=== PATIENT | male | born 1945 | race Native Hawaiian/Other Pacific Islander ===

== ENCOUNTER 2017-07-18 14:22 | Inpatient (IN) | payer OTHER ==
[~2017-07-18 14:22] MED LIST: ACET7.5T70 PO; AMITRIPTYLIN50 MG PO; CELEXA20 MG PO; ETODOLAC ER600 MG PO; FORTAMET500 MG PO; NORCO 10/325***1 TAB PO; PENI500T14 PO; ZOLP10TA2 PO
== END 2017-08-14 10:40 | disposition still patient (30) ==
LOC: PAVC 14:22
PROVIDERS: ADMIT Internal Medicine

== ENCOUNTER 2017-07-19 05:04 | Outpatient (CLI) | payer OTHER ==
[2017-07-19 06:22] LABS: PLATELET COUNT 303 K/uL (142-355)
[2017-07-19 06:35] LABS: POTASSIUM 4.2 mmol/L (3.6-5.2); SODIUM 132 mmol/L (136-145)
== END 2017-07-19 19:20 | disposition home or self-care (01) ==
LOC: LAB 05:04
PROVIDERS: Internal Medicine
DX: D64.89 Other specified anemias (principal); I10 Essential (primary) hypertension; E03.8 Other specified hypothyroidism; E11.9 Type 2 diabetes mellitus without complications
CPT/HCPCS: 80053; 83036; 84443; 85027; 87081

== ENCOUNTER 2017-07-22 04:40 | Outpatient (CLI) | payer OTHER | END 2017-07-22 20:02 | disposition home or self-care (01) | LOC: LAB 04:40 | DX: E11.29 Type 2 diabetes mellitus with other diabetic kidney complication (principal); R79.89 Other specified abnormal findings of blood chemistry | CPT/HCPCS: 82607; 82728; 84436; 84479 ==

== ENCOUNTER 2017-07-25 09:46 | Outpatient (CLI) | payer OTHER | END 2017-07-25 21:05 | disposition home or self-care (01) | LOC: RAD 09:46 | DX: M25.552 Pain in left hip (principal) ==

== ENCOUNTER 2017-08-01 15:17 | Outpatient (CLI) | payer OTHER | END 2017-08-01 19:41 | disposition home or self-care (01) | LOC: LAB 15:17 | DX: R36.9 Urethral discharge, unspecified (principal) | CPT/HCPCS: 87070; 87077; 87186; 87205 ==

== ENCOUNTER 2017-08-14 11:05 | Inpatient (IN) | payer OTHER | END 2017-09-14 08:00 | disposition still patient (30) | LOC: PAVC 11:05 | PROVIDERS: ADMIT Internal Medicine ==

== ENCOUNTER 2017-09-14 09:00 | Inpatient (IN) | payer OTHER | END 2017-10-14 10:32 | disposition still patient (30) | LOC: PAVC 09:00 | PROVIDERS: ADMIT Internal Medicine ==

== ENCOUNTER 2017-10-14 11:02 | Inpatient (IN) | payer OTHER | END 2017-11-14 10:26 | disposition still patient (30) | LOC: PAVC 11:02 | PROVIDERS: ADMIT Internal Medicine ==

== ENCOUNTER 2017-10-15 04:29 | Outpatient (CLI) | payer OTHER | END 2017-10-15 21:35 | disposition home or self-care (01) | LOC: LABW 04:29 | DX: E03.8 Other specified hypothyroidism (principal); R73.09 Other abnormal glucose | CPT/HCPCS: 36415; 83036 ==

== ENCOUNTER 2017-11-14 11:08 | Inpatient (IN) | payer OTHER | END 2017-12-14 15:07 | disposition still patient (30) | LOC: PAVC 11:08 | PROVIDERS: ADMIT Internal Medicine ==

== ENCOUNTER 2017-12-14 15:41 | Inpatient (IN) | payer OTHER | END 2018-01-14 08:00 | disposition still patient (30) | LOC: PAVC 15:41 | PROVIDERS: ADMIT Internal Medicine ==

== ENCOUNTER 2018-01-14 09:00 | Inpatient (IN) | payer OTHER | END 2018-02-14 11:13 | disposition still patient (30) | LOC: PAVC 09:00 | PROVIDERS: ADMIT Internal Medicine ==

== ENCOUNTER 2018-02-02 10:18 | Outpatient (CLI) | payer OTHER ==
[2018-02-02 10:36] LABS: PLATELET COUNT 303 K/uL (142-355)
[2018-02-02 11:13] LABS: POTASSIUM 4.9 mmol/L (3.6-5.2)
== END 2018-02-02 21:40 | disposition home or self-care (01) ==
LOC: LAB 10:18
PROVIDERS: Internal Medicine
DX: E53.8 Deficiency of other specified B group vitamins (principal); E11.9 Type 2 diabetes mellitus without complications; D64.9 Anemia, unspecified; I10 Essential (primary) hypertension; F41.8 Other specified anxiety disorders; Z79.899 Other long term (current) drug therapy
CPT/HCPCS: 80053; 82607; 82728; 83036; 83540; 84436; 84443; 84480; 85027

== ENCOUNTER 2018-02-14 11:49 | Inpatient (IN) | payer OTHER | END 2018-03-16 15:06 | disposition still patient (30) | LOC: PAVC 11:49 | PROVIDERS: ADMIT Internal Medicine ==

== ENCOUNTER 2018-03-16 15:59 | Inpatient (IN) | payer OTHER ==
[2018-03-25] MEDS ORDERED: CYAN10009 IM (13:17)
[2018-03-25] MEDS ORDERED: METF100038 PO (13:19)
[2018-03-25] MEDS ORDERED: MOBIC7.5 M1 PO (13:19)
[2018-03-25] MEDS ORDERED: CLOP75TA2 PO (13:20)
[2018-03-25] MEDS ORDERED: OMEP20CA PO (13:20)
[2018-03-25] MEDS ORDERED: FINGERSTIX (13:21)
[2018-03-25] MEDS ORDERED: PERCOCET1 TA1 PO (13:23)
[2018-03-25] MEDS ORDERED: BANOPHEN25 M1 PO (13:24)
[2018-03-25] MEDS ORDERED: TRIA0.1C5 TOP (13:28)
[2018-03-25] MEDS ORDERED: HYDROCORTISONE1 % PR (13:31)
[2018-03-25] MEDS ORDERED: NYST100010 EX (13:31)
[2018-03-25] MEDS ORDERED: PROMETHAZINE HY25 MG PO (13:33)
[2018-03-25] MEDS ORDERED: TYLENOL325 MG PO (13:34)
[2018-04-01] MEDS ORDERED: ESCI10TA PO (12:26)
[2018-04-01] MEDS ORDERED: RISP0.25 PO ×2 (12:26)
== END 2018-04-16 10:41 | disposition still patient (30) ==
LOC: PAVC 15:59
PROVIDERS: ADMIT Internal Medicine

== ENCOUNTER 2018-04-16 11:43 | Inpatient (IN) | payer OTHER ==
[~2018-04-16 11:43] MED LIST changes: +BANOPHEN25 M1 PO; +CLOP75TA2 PO; +CYAN10009 IM; +ESCI10TA PO; +FINGERSTIX; +HYDROCORTISONE1 % PR; +METF100038 PO; +MOBIC7.5 M1 PO; +NYST100010 EX; +OMEP20CA PO; +PERCOCET1 TA1 PO; +PROMETHAZINE HY25 MG PO; +RISP0.25 PO; +TRIA0.1C5 TOP; +TYLENOL325 MG PO
== END 2018-05-16 07:23 | disposition still patient (30) ==
LOC: PAVC 11:43
PROVIDERS: ADMIT Internal Medicine

== ENCOUNTER 2018-04-23 06:57 | Outpatient (CLI) | payer OTHER | END 2018-04-23 20:09 | disposition home or self-care (01) | LOC: LAB 06:57 | DX: R73.03 Prediabetes (principal) | CPT/HCPCS: 36415; 83036 ==

== ENCOUNTER 2018-04-30 05:32 | Outpatient (CLI) | payer OTHER | END 2018-04-30 19:26 | disposition home or self-care (01) | LOC: LAB 05:32 | DX: E55.9 Vitamin D deficiency, unspecified (principal) | CPT/HCPCS: 36415; 82306 ==

== ENCOUNTER 2018-05-16 08:00 | Inpatient (IN) | payer OTHER | END 2018-06-16 09:39 | disposition still patient (30) | LOC: PAVC 08:00 | PROVIDERS: ADMIT Internal Medicine ==

== ENCOUNTER 2018-06-16 10:07 | Inpatient (IN) | payer OTHER | END 2018-07-17 09:40 | disposition still patient (30) | LOC: PAVC 10:07 | PROVIDERS: ADMIT Internal Medicine ==

== ENCOUNTER 2018-07-06 15:44 | Outpatient (CLI) | payer OTHER | END 2018-07-06 22:14 | disposition home or self-care (01) | LOC: RAD 15:44 | DX: R06.2 Wheezing (principal) ==

== ENCOUNTER 2018-07-17 10:32 | Inpatient (IN) | payer OTHER | END 2018-08-14 13:52 | disposition still patient (30) | LOC: PAVC 10:32 | PROVIDERS: ADMIT Internal Medicine ==

== ENCOUNTER 2018-07-20 07:58 | Outpatient (CLI) | payer OTHER ==
[2018-07-20 08:50] LABS: PLATELET COUNT 255 K/uL (142-355)
[2018-07-20 09:33] LABS: POTASSIUM 4.8 mmol/L (3.6-5.2)
== END 2018-07-20 20:46 | disposition home or self-care (01) ==
LOC: LAB 07:58
PROVIDERS: Internal Medicine
DX: D50.9 Iron deficiency anemia, unspecified (principal); E61.1 Iron deficiency; D51.0 Vitamin B12 deficiency anemia due to intrinsic factor deficiency; R94.6 Abnormal results of thyroid function studies; R68.89 Other general symptoms and signs
CPT/HCPCS: 36415; 80053; 82607; 82728; 83036; 83540; 84443; 85027

== ENCOUNTER 2018-08-14 14:32 | Inpatient (IN) | payer OTHER | END 2018-09-14 12:33 | disposition still patient (30) | LOC: PAVC 14:32 | PROVIDERS: ADMIT Internal Medicine ==

== ENCOUNTER 2018-09-02 13:21 | Outpatient (CLI) | payer OTHER | END 2018-09-02 23:12 | disposition home or self-care (01) | LOC: LAB 13:21 | DX: N36.8 Other specified disorders of urethra (principal) | CPT/HCPCS: 81000 ==

== ENCOUNTER 2018-09-03 10:19 | Outpatient (CLI) | payer OTHER | END 2018-09-03 19:12 | disposition home or self-care (01) | LOC: LAB 10:19 | DX: Z12.5 Encounter for screening for malignant neoplasm of prostate (principal) | CPT/HCPCS: 84153 ==

== ENCOUNTER 2018-09-14 13:00 | Inpatient (IN) | payer OTHER | END 2018-10-14 13:45 | disposition still patient (30) | LOC: PAVC 13:00 | PROVIDERS: ADMIT Internal Medicine ==

== ENCOUNTER 2018-10-14 14:21 | Inpatient (IN) | payer OTHER | END 2018-11-14 09:41 | disposition still patient (30) | LOC: PAVC 14:21 | PROVIDERS: ADMIT Internal Medicine | DX: Z51.89 Encounter for other specified aftercare (principal) ==

== ENCOUNTER 2018-10-16 05:55 | Outpatient (CLI) | payer OTHER | END 2018-10-16 19:56 | disposition home or self-care (01) | LOC: LAB 05:55 | DX: R73.09 Other abnormal glucose (principal) | CPT/HCPCS: 83036 ==

== ENCOUNTER 2018-11-14 10:15 | Inpatient (IN) | payer OTHER | END 2018-12-14 12:21 | disposition still patient (30) | LOC: PAVC 10:15 | PROVIDERS: ADMIT Internal Medicine ==

== ENCOUNTER 2018-12-14 12:44 | Inpatient (IN) | payer OTHER | END 2019-01-14 12:33 | disposition still patient (30) | LOC: PAVC 12:44 | PROVIDERS: ADMIT Internal Medicine ==

== ENCOUNTER 2019-01-14 14:26 | Inpatient (IN) | payer OTHER | END 2019-02-14 17:18 | disposition still patient (30) | LOC: PAVC 14:26 | PROVIDERS: ADMIT Internal Medicine ==

== ENCOUNTER 2019-01-19 11:55 | Outpatient (CLI) | payer OTHER ==
[2019-01-19 13:00] LABS: PLATELET COUNT 272 K/uL (142-355)
[2019-01-19 13:09] LABS: POTASSIUM 4.2 mmol/L (3.6-5.2)
== END 2019-01-19 23:18 | disposition home or self-care (01) ==
LOC: LAB 11:55
PROVIDERS: Internal Medicine
DX: R68.89 Other general symptoms and signs (principal); R79.89 Other specified abnormal findings of blood chemistry; D51.8 Other vitamin B12 deficiency anemias; R94.6 Abnormal results of thyroid function studies; D50.8 Other iron deficiency anemias; R73.09 Other abnormal glucose; Z79.899 Other long term (current) drug therapy
CPT/HCPCS: 80053; 82607; 82728; 83036; 83540; 84443; 85027

== ENCOUNTER 2019-02-14 17:51 | Inpatient (IN) | payer OTHER | END 2019-03-16 12:59 | disposition still patient (30) | LOC: PAVC 17:51 | PROVIDERS: ADMIT Internal Medicine ==

== ENCOUNTER 2019-03-16 13:40 | Inpatient (IN) | payer OTHER | END 2019-04-16 14:17 | disposition still patient (30) | LOC: PAVC 13:40 | PROVIDERS: ADMIT Internal Medicine ==

== ENCOUNTER 2019-04-16 15:03 | Inpatient (IN) | payer OTHER | END 2019-05-16 08:00 | disposition still patient (30) | LOC: PAVC 15:03 | PROVIDERS: ADMIT Internal Medicine ==

== ENCOUNTER 2019-04-21 04:30 | Outpatient (CLI) | payer OTHER | END 2019-04-21 21:29 | disposition home or self-care (01) | LOC: LAB 04:30 | DX: R73.09 Other abnormal glucose (principal) | CPT/HCPCS: 83036 ==

== ENCOUNTER 2019-05-16 11:00 | Inpatient (IN) | payer OTHER | END 2019-06-16 09:32 | disposition still patient (30) | LOC: PAVC 11:00 | PROVIDERS: ADMIT Internal Medicine ==

== ENCOUNTER 2019-06-16 10:08 | Inpatient (IN) | payer OTHER | END 2019-07-17 10:47 | disposition still patient (30) | LOC: PAVC 10:08 | PROVIDERS: ADMIT Internal Medicine ==

== ENCOUNTER 2019-07-17 11:38 | Inpatient (IN) | payer OTHER | END 2019-08-15 14:12 | disposition still patient (30) | LOC: PAVC 11:38 | PROVIDERS: ADMIT Internal Medicine ==

== ENCOUNTER 2019-07-18 05:18 | Outpatient (CLI) | payer OTHER ==
[2019-07-18 06:44] LABS: PLATELET COUNT 223 K/uL (142-355)
[2019-07-18 07:06] LABS: POTASSIUM 4.7 mmol/L (3.6-5.2)
== END 2019-07-18 19:02 | disposition home or self-care (01) ==
LOC: LAB 05:18
PROVIDERS: Internal Medicine
DX: E10.69 Type 1 diabetes mellitus with other specified complication (principal); I69.951 Hemiplegia and hemiparesis following unspecified cerebrovascular disease affecting right dominant side; D51.0 Vitamin B12 deficiency anemia due to intrinsic factor deficiency; E03.9 Hypothyroidism, unspecified
CPT/HCPCS: 80053; 82607; 82728; 83036; 83540; 84443; 85027

== ENCOUNTER 2019-08-15 14:48 | Inpatient (IN) | payer OTHER | END 2019-09-15 11:45 | disposition still patient (30) | LOC: PAVC 14:48 | PROVIDERS: ADMIT Internal Medicine ==

== ENCOUNTER 2019-09-15 12:21 | Inpatient (IN) | payer OTHER | END 2019-10-15 11:23 | disposition still patient (30) | LOC: PAVC 12:21 | PROVIDERS: ADMIT Internal Medicine ==

== ENCOUNTER 2019-10-15 05:56 | Outpatient (CLI) | payer OTHER | END 2019-10-15 21:25 | disposition home or self-care (01) | LOC: LAB 05:56 | DX: E10.69 Type 1 diabetes mellitus with other specified complication (principal) | CPT/HCPCS: 36415; 83036 ==

== ENCOUNTER 2019-10-15 12:03 | Inpatient (IN) | payer OTHER ==
[2019-10-17] MEDS ORDERED: ASCORBIC ACD500 MG PO (23:44)
[2019-10-17] MEDS ORDERED: FERROUS FUM324 MG PO (23:46)
[2019-10-29] MEDS ORDERED: IPRAAER INH (09:18)
[2019-10-29] MEDS ORDERED: SILV1CRE TOP (09:22)
[2019-10-29] MEDS ORDERED: ZINC220C4 PO (09:23)
[2019-10-29] MEDS ORDERED: NYST100016 EX (09:26)
== END 2019-11-15 11:22 | disposition still patient (30) ==
LOC: PAVC 12:03
PROVIDERS: ADMIT Internal Medicine
DX: U07.1 COVID-19 (principal); R13.12 Dysphagia, oropharyngeal phase; M62.81 Muscle weakness (generalized); I69.951 Hemiplegia and hemiparesis following unspecified cerebrovascular disease affecting right dominant side; I63.9 Cerebral infarction, unspecified; K21.9 Gastro-esophageal reflux disease without esophagitis; F01.51 Vascular dementia, unspecified severity, with behavioral disturbance; E03.9 Hypothyroidism, unspecified

== ENCOUNTER 2019-10-17 09:34 | Outpatient (CLI) | payer OTHER ==
[2019-10-17 09:56] LABS: PLATELET COUNT 330 K/uL (142-355)
[2019-10-17 10:03] LABS: POTASSIUM 4.2 mmol/L (3.6-5.2)
[2019-10-17] MEDS ORDERED: ASCORBIC ACD500 MG PO (23:44)
[2019-10-17] MEDS ORDERED: FERROUS FUM324 MG PO (23:46)
== END 2019-10-17 22:20 | disposition home or self-care (01) ==
LOC: LAB 09:34
PROVIDERS: Internal Medicine
DX: R41.82 Altered mental status, unspecified (principal)
CPT/HCPCS: 80048; 85027

== ENCOUNTER 2019-10-17 13:36 | Inpatient (IN) | payer OTHER ==
[2019-10-17] VITALS (11 sets, daily range): BP systolic 115–139; BP diastolic 66–78; TEMP 98.1–100.2; Ht 167.6 cm; Wt 87.3 kg
[~2019-10-17] VITALS: Ht 167.6 cm; Wt 87.3 kg
[2019-10-17 14:17] LABS: PLATELET COUNT 330 K/uL (142-355)
[2019-10-17 14:22] LABS: POTASSIUM 4.2 mmol/L (3.6-5.2); SODIUM 149 mmol/L (136-145)
[2019-10-17 14:40] LABS: PARTIAL THROMBOPLASTIN TIME 21.3 SECONDS (24.5-33.6)
[2019-10-17] MEDS ORDERED: ASCORBIC ACD500 MG PO (23:44)
[2019-10-17] MEDS ORDERED: FERROUS FUM324 MG PO (23:46)
[2019-10-18] VITALS (24 sets, daily range): BP systolic 117–155; BP diastolic 43–74; TEMP 98.4–99.6
[2019-10-18 06:17] LABS: PLATELET COUNT 281 K/uL (142-355)
[2019-10-18 06:20] LABS: POTASSIUM 3.7 mmol/L (3.6-5.2)
[2019-10-19] VITALS (23 sets, daily range): BP systolic 13–134; BP diastolic 24–66; TEMP 98.2–99.7
[2019-10-19 06:38] LABS: PLATELET COUNT 232 K/uL (142-355)
[2019-10-19 06:49] LABS: POTASSIUM 3.6 mmol/L (3.6-5.2)
[2019-10-20] VITALS (22 sets, daily range): BP systolic 100–158; BP diastolic 25–71; TEMP 97.6–100
[2019-10-20 05:58] LABS: PLATELET COUNT 242 K/uL (142-355)
[2019-10-21] VITALS (24 sets, daily range): BP systolic 112–193; BP diastolic 40–85; TEMP 96.9–99.5
[2019-10-21 06:00] LABS: PLATELET COUNT 214 K/uL (142-355)
[2019-10-21 06:15] LABS: POTASSIUM 3.7 mmol/L (3.6-5.2)
[2019-10-22] VITALS (20 sets, daily range): BP systolic 103–195; BP diastolic 37–81; TEMP 97.8–99.6
[2019-10-22 05:45] LABS: POTASSIUM 3.5 mmol/L (3.6-5.2)
[2019-10-22 06:30] LABS: PLATELET COUNT 238 K/uL (142-355)
[2019-10-23] VITALS (21 sets, daily range): BP systolic 88–171; BP diastolic 40–81; TEMP 97.7–99.9
[2019-10-24] VITALS (24 sets, daily range): BP systolic 83–186; BP diastolic 44–83; TEMP 97.8–98.8
[2019-10-24 12:21] LABS: PLATELET COUNT 243 K/uL (142-355)
[2019-10-24 12:29] LABS: POTASSIUM 3.3 mmol/L (3.6-5.2)
[2019-10-25] VITALS (24 sets, daily range): BP systolic 115–166; BP diastolic 6–70; TEMP 98.1–99.1
[2019-10-25 08:17] LABS: PLATELET COUNT 258 K/uL (142-355)
[2019-10-25 08:30] LABS: POTASSIUM 3.2 mmol/L (3.6-5.2)
[2019-10-26] VITALS (20 sets, daily range): BP systolic 90–168; BP diastolic 39–96; TEMP 98.1–99.6
[2019-10-26 07:33] LABS: PLATELET COUNT 298 K/uL (142-355)
[2019-10-27] VITALS (23 sets, daily range): BP systolic 91–127; BP diastolic 42–90; TEMP 99–99.6
[2019-10-27 07:36] LABS: PLATELET COUNT 307 K/uL (142-355)
[2019-10-27 07:58] LABS: POTASSIUM 3.6 mmol/L (3.6-5.2)
[2019-10-28] VITALS (21 sets, daily range): BP systolic 101–167; BP diastolic 40–61; TEMP 97.8–99.1
[2019-10-28 06:02] LABS: PLATELET COUNT 321 K/uL (142-355); POTASSIUM 3.5 mmol/L (3.6-5.2)
[2019-10-29] VITALS (12 sets, daily range): BP systolic 135–172; BP diastolic 42–60; TEMP 98.4–99.7
[2019-10-29 09:01] LABS: POTASSIUM 4.5 mmol/L (3.6-5.2)
[2019-10-29] MEDS ORDERED: IPRAAER INH (09:18)
[2019-10-29] MEDS ORDERED: SILV1CRE TOP (09:22)
[2019-10-29] MEDS ORDERED: ZINC220C4 PO (09:23)
[2019-10-29] MEDS ORDERED: NYST100016 EX (09:26)
[2019-10-29 10:01] LABS: PLATELET COUNT 300 K/uL (142-355)
== END 2019-10-29 13:40 | DRG 177 ==
LOC: ED 13:36 → ICU 14:37 → MED/SURG 14:37 → ICU 23:05
PROVIDERS: Internal Medicine; Internal Medicine Endocrinology, Diabetes & Metabolism; ADMIT Hospitalist
DX: U07.1 COVID-19 (principal); L89.323 Pressure ulcer of left buttock, stage 3; G92 Toxic encephalopathy; J96.01 Acute respiratory failure with hypoxia; N39.0 Urinary tract infection, site not specified; M62.82 Rhabdomyolysis; E87.0 Hyperosmolality and hypernatremia; N17.8 Other acute kidney failure; N17.9 Acute kidney failure, unspecified; E46 Unspecified protein-calorie malnutrition; Z86.73 Personal history of transient ischemic attack (TIA), and cerebral infarction without residual deficits; K21.9 Gastro-esophageal reflux disease without esophagitis; I12.9 Hypertensive chronic kidney disease with stage 1 through stage 4 chronic kidney disease, or unspecified chronic kidney disease; E11.22 Type 2 diabetes mellitus with diabetic chronic kidney disease; N18.3 Chronic kidney disease, stage 3 (moderate); B96.20 Unspecified Escherichia coli [E. coli] as the cause of diseases classified elsewhere; E87.8 Other disorders of electrolyte and fluid balance, not elsewhere classified; E87.6 Hypokalemia; E83.42 Hypomagnesemia
CPT/HCPCS: 36415; 36600; 80048; 80053; 80202; 81000; 81002; 82550; 82553; 82805; 82962; 83735; 83880; 84443; 84484; 85007; 85027; 85610; 85730; 87040; 87077; 87086; 87088; 87185; 87186; 87205; 93005; 94664; 94760; 96360; 96361; 96365; 96366; 97667; 99284; J0696; J1335; J1650; J1815; J1940; J1956; J2060; J2270; J2405; J3475; J3480; J3490

== ENCOUNTER 2019-11-15 11:54 | Inpatient (IN) | payer OTHER ==
[~2019-11-15 11:54] MED LIST changes: +ASCORBIC ACD500 MG PO; +FERROUS FUM324 MG PO; +IPRAAER INH; +NYST100016 EX; +SILV1CRE TOP; +ZINC220C4 PO
== END 2019-12-15 11:56 | disposition still patient (30) ==
LOC: PAVC 11:54
PROVIDERS: ADMIT Internal Medicine
DX: U07.1 COVID-19 (principal); R13.12 Dysphagia, oropharyngeal phase; M62.81 Muscle weakness (generalized); I69.951 Hemiplegia and hemiparesis following unspecified cerebrovascular disease affecting right dominant side; I63.9 Cerebral infarction, unspecified; K21.9 Gastro-esophageal reflux disease without esophagitis; F01.51 Vascular dementia, unspecified severity, with behavioral disturbance; E03.9 Hypothyroidism, unspecified
CPT/HCPCS: 87635; U0002

== ENCOUNTER 2019-12-15 12:15 | Inpatient (IN) | payer OTHER | END 2020-01-15 10:15 | disposition still patient (30) | LOC: PAVC 12:15 | PROVIDERS: ADMIT Internal Medicine ==

== ENCOUNTER 2020-01-15 10:37 | Inpatient (IN) | payer OTHER | END 2020-02-15 14:04 | disposition still patient (30) | LOC: PAVC 10:37 | PROVIDERS: ADMIT Internal Medicine ==

== ENCOUNTER 2020-01-17 07:23 | Outpatient (CLI) | payer OTHER ==
[2020-01-17 08:10] LABS: PLATELET COUNT 232 K/uL (142-355)
[2020-01-17 08:41] LABS: POTASSIUM 4.5 mmol/L (3.6-5.2)
== END 2020-01-17 22:33 | disposition home or self-care (01) ==
LOC: LAB 07:23
PROVIDERS: Internal Medicine
DX: D51.0 Vitamin B12 deficiency anemia due to intrinsic factor deficiency (principal); D64.89 Other specified anemias; E10.69 Type 1 diabetes mellitus with other specified complication; E03.8 Other specified hypothyroidism; I69.951 Hemiplegia and hemiparesis following unspecified cerebrovascular disease affecting right dominant side
CPT/HCPCS: 80053; 82607; 82728; 83036; 83540; 84443; 85027

== ENCOUNTER 2020-02-11 06:48 | Outpatient (CLI) | payer OTHER | END 2020-02-11 20:30 | disposition home or self-care (01) | LOC: LAB 06:48 | DX: Z12.5 Encounter for screening for malignant neoplasm of prostate (principal) | CPT/HCPCS: 84153 ==

== ENCOUNTER 2020-02-15 14:53 | Inpatient (IN) | payer OTHER | END 2020-03-16 14:10 | disposition still patient (30) | LOC: PAVC 14:53 | PROVIDERS: ADMIT Internal Medicine ==

== ENCOUNTER 2020-03-16 15:12 | Inpatient (IN) | payer OTHER | END 2020-04-16 08:00 | disposition still patient (30) | LOC: PAVC 15:12 | PROVIDERS: ADMIT Internal Medicine ==

== ENCOUNTER 2020-04-16 09:00 | Inpatient (IN) | payer OTHER | END 2020-05-16 12:25 | disposition still patient (30) | LOC: PAVC 09:00 | PROVIDERS: ADMIT Internal Medicine; ATTEND Internal Medicine ==

== ENCOUNTER 2020-04-19 07:12 | Outpatient (CLI) | payer OTHER | END 2020-04-19 21:27 | disposition home or self-care (01) | LOC: LAB 07:12 | DX: E10.69 Type 1 diabetes mellitus with other specified complication (principal) | CPT/HCPCS: 83036 ==

== ENCOUNTER 2020-05-16 12:54 | Inpatient (IN) | payer OTHER | END 2020-06-16 09:48 | disposition still patient (30) | LOC: PAVC 12:54 | PROVIDERS: ADMIT Internal Medicine; ATTEND Internal Medicine ==

== ENCOUNTER 2020-06-16 10:13 | Inpatient (IN) | payer OTHER | END 2020-07-17 15:31 | disposition still patient (30) | LOC: PAVC 10:13 | PROVIDERS: ADMIT Internal Medicine; ATTEND Internal Medicine ==

== ENCOUNTER 2020-07-17 15:38 | Inpatient (IN) | payer OTHER | END 2020-08-14 11:16 | disposition still patient (30) | LOC: PAVC 15:38 | PROVIDERS: ADMIT Internal Medicine; ATTEND Internal Medicine ==

== ENCOUNTER 2020-08-14 11:47 | Inpatient (IN) | payer OTHER | END 2020-09-14 12:23 | disposition still patient (30) | LOC: PAVC 11:47 | PROVIDERS: ADMIT Internal Medicine; ATTEND Internal Medicine ==

== ENCOUNTER 2020-09-14 13:53 | Inpatient (IN) | payer OTHER | END 2020-10-14 11:26 | disposition still patient (30) | LOC: PAVC 13:53 | PROVIDERS: ADMIT Internal Medicine; ATTEND Internal Medicine ==

== ENCOUNTER 2020-10-12 13:48 | Outpatient (CLI) | payer OTHER | END 2020-10-12 20:39 | disposition home or self-care (01) | LOC: INF 13:48 | PROVIDERS: ATTEND Internal Medicine | DX: Z23 Encounter for immunization (principal) | CPT/HCPCS: 96372 ==

== ENCOUNTER 2020-10-14 11:48 | Inpatient (IN) | payer OTHER | END 2020-11-14 15:45 | disposition still patient (30) | LOC: PAVC 11:48 | PROVIDERS: ADMIT Internal Medicine; ATTEND Internal Medicine ==

== ENCOUNTER 2020-10-16 09:32 | Outpatient (CLI) | payer OTHER | END 2020-10-16 19:16 | disposition home or self-care (01) | LOC: LAB 09:32 | PROVIDERS: ATTEND Internal Medicine | DX: E10.69 Type 1 diabetes mellitus with other specified complication (principal) | CPT/HCPCS: 83036 ==

== ENCOUNTER 2020-11-14 16:36 | Inpatient (IN) | payer OTHER | END 2020-12-14 08:00 | disposition still patient (30) | LOC: PAVC 16:36 | PROVIDERS: ADMIT Internal Medicine; ATTEND Internal Medicine ==

== ENCOUNTER 2020-12-14 09:00 | Inpatient (IN) | payer OTHER | END 2021-01-14 08:00 | disposition still patient (30) | LOC: PAVC 09:00 | PROVIDERS: ADMIT Internal Medicine; ATTEND Internal Medicine ==

== ENCOUNTER 2021-01-14 09:00 | Inpatient (IN) | payer OTHER | END 2021-02-14 13:51 | disposition still patient (30) | LOC: PAVC 09:00 | PROVIDERS: ADMIT Internal Medicine; ATTEND Internal Medicine ==

== ENCOUNTER 2021-01-15 08:24 | Outpatient (CLI) | payer OTHER ==
[2021-01-15 08:43] LABS: PLATELET COUNT 242 K/uL (142-355)
[2021-01-15 09:10] LABS: POTASSIUM 4.6 mmol/L (3.6-5.2)
== END 2021-01-15 22:36 | disposition home or self-care (01) ==
LOC: LAB 08:24
PROVIDERS: ATTEND Internal Medicine
DX: D51.0 Vitamin B12 deficiency anemia due to intrinsic factor deficiency (principal); E03.8 Other specified hypothyroidism; I69.951 Hemiplegia and hemiparesis following unspecified cerebrovascular disease affecting right dominant side; D64.89 Other specified anemias; E10.69 Type 1 diabetes mellitus with other specified complication
CPT/HCPCS: 80053; 82607; 82728; 83036; 83540; 84443; 85027

== ENCOUNTER 2021-02-14 14:24 | Inpatient (IN) | payer OTHER | END 2021-03-16 09:39 | disposition still patient (30) | LOC: PAVC 14:24 | PROVIDERS: ADMIT Internal Medicine; ATTEND Internal Medicine ==

== ENCOUNTER 2021-04-16 07:59 | Outpatient (CLI) | payer OTHER | END 2021-04-16 19:20 | disposition home or self-care (01) | LOC: LAB 07:59 | PROVIDERS: ATTEND Internal Medicine | DX: E10.69 Type 1 diabetes mellitus with other specified complication (principal) | CPT/HCPCS: 83036 ==

== ENCOUNTER 2021-05-16 12:54 | Inpatient (IN) | payer OTHER | END 2021-06-16 09:09 | disposition still patient (30) | LOC: PAVC 12:54 | PROVIDERS: ADMIT Internal Medicine; ATTEND Internal Medicine ==

== ENCOUNTER 2021-06-16 09:36 | Inpatient (IN) | payer OTHER | END 2021-07-17 08:59 | disposition still patient (30) | LOC: PAVC 09:36 | PROVIDERS: ADMIT Internal Medicine; ATTEND Internal Medicine ==

== ENCOUNTER 2021-07-17 07:49 | Outpatient (CLI) | payer OTHER ==
[2021-07-17 08:51] LABS: PLATELET COUNT 242 K/uL (142-355)
[2021-07-17 09:30] LABS: POTASSIUM 4.6 mmol/L (3.6-5.2)
== END 2021-07-17 19:23 | disposition home or self-care (01) ==
LOC: LAB 07:49
PROVIDERS: ATTEND Internal Medicine
DX: E11.9 Type 2 diabetes mellitus without complications (principal); D64.89 Other specified anemias
CPT/HCPCS: 80053; 82607; 82728; 83036; 83540; 84443; 85027

== ENCOUNTER 2021-07-17 13:33 | Inpatient (IN) | payer OTHER ==
[2021-07-20] MEDS ORDERED: FERROUS SULF325 M1 PO (16:01)
[2021-07-20] MEDS ORDERED: RISP0.5T2 PO (16:04)
[2021-07-20] MEDS ORDERED: MULTIPLE PO (16:07)
[2021-07-20] MEDS ORDERED: VITAMIN D32000 UNI1 PO (16:07)
[2021-07-20] MEDS ORDERED: PERCOCET1 TA1 PO (16:08)
[2021-07-20] MEDS ORDERED: ONDA4TAB3 PO (16:09)
[2021-07-25] MEDS ORDERED: FOLI1TAB26 PO (14:55)
== END 2021-08-14 09:10 | disposition still patient (30) ==
LOC: PAVC 13:33
PROVIDERS: ADMIT Internal Medicine; ATTEND Internal Medicine

== ENCOUNTER 2021-07-20 03:20 | Emergency (ER) | payer OTHER ==
[~2021-07-20] VITALS: Ht 167.6 cm; Wt 89.4 kg
[2021-07-20 03:47] LABS: PLATELET COUNT 243 K/uL (142-355)
[2021-07-20 03:57] LABS: POTASSIUM 4.2 mmol/L (3.6-5.2)
[2021-07-20 06:45] VITALS: BP 121/74; TEMP 101.5
[2021-07-20] MEDS ORDERED: FERROUS SULF325 M1 PO (16:01)
[2021-07-20] MEDS ORDERED: RISP0.5T2 PO (16:04)
[2021-07-20] MEDS ORDERED: VITAMIN D32000 UNI1 PO (16:07)
[2021-07-20] MEDS ORDERED: MULTIPLE PO (16:07)
[2021-07-20] MEDS ORDERED: PERCOCET1 TA1 PO (16:08)
[2021-07-20] MEDS ORDERED: ONDA4TAB3 PO (16:09)
== END 2021-07-20 06:45 ==
LOC: ED 03:20
PROVIDERS: Emergency Medicine
DX: R50.9 Fever, unspecified (principal); R11.2 Nausea with vomiting, unspecified; E87.1 Hypo-osmolality and hyponatremia; E11.65 Type 2 diabetes mellitus with hyperglycemia
CPT/HCPCS: 36415; 80053; 81000; 83605; 85027; 87040; 87077; 87186; 87205; 93005; 96360; 96365; 99284; J0696; J2405

== ENCOUNTER 2021-07-20 08:30 | Inpatient (IN) | payer OTHER ==
[~2021-07-20] VITALS: Ht 167.6 cm; Wt 94.0 kg
[2021-07-20] VITALS (13 sets, daily range): BP systolic 68–129; BP diastolic 32–87; TEMP 97.8–100.4; Ht 167.6 cm; Wt 94.0 kg
[2021-07-20] MEDS ORDERED: FERROUS SULF325 M1 PO (16:01)
[2021-07-20] MEDS ORDERED: RISP0.5T2 PO (16:04)
[2021-07-20] MEDS ORDERED: VITAMIN D32000 UNI1 PO (16:07)
[2021-07-20] MEDS ORDERED: MULTIPLE PO (16:07)
[2021-07-20] MEDS ORDERED: PERCOCET1 TA1 PO (16:08)
[2021-07-20] MEDS ORDERED: ONDA4TAB3 PO (16:09)
[2021-07-21 00:02] VITALS: BP 98/41; TEMP 99.3
[2021-07-21 04:00] VITALS: BP 100/48; TEMP 98.7
[2021-07-21 04:56] LABS: POTASSIUM 3.6 mmol/L (3.6-5.2)
[2021-07-21 05:10] LABS: PLATELET COUNT 178 K/uL (142-355)
[2021-07-21 08:30] VITALS: BP 90/48; TEMP 97.6
[2021-07-21 12:30] VITALS: BP 100/48; TEMP 97.4
[2021-07-21 16:17] VITALS: BP 132/50; TEMP 98.5
[2021-07-21 20:00] VITALS: BP 120/60; TEMP 98.4
[2021-07-22] VITALS: BP 154/88; TEMP 99.3
[2021-07-22 04:00] VITALS: BP 112/57; TEMP 98.1
[2021-07-22 05:03] LABS: PLATELET COUNT 183 K/uL (142-355)
[2021-07-22 05:05] LABS: POTASSIUM 3.8 mmol/L (3.6-5.2)
[2021-07-22 08:30] VITALS: BP 121/53; TEMP 98.7
[2021-07-22 12:30] VITALS: BP 129/48; TEMP 98.2
[2021-07-22 16:30] VITALS: BP 103/53; TEMP 98.7
[2021-07-22 20:00] VITALS: BP 122/60; TEMP 98.3
[2021-07-23] VITALS: BP 101/63; TEMP 98.6
[2021-07-23 04:00] VITALS: BP 139/94; TEMP 98.6
[2021-07-23 05:04] LABS: PLATELET COUNT 189 K/uL (142-355)
[2021-07-23 05:40] LABS: POTASSIUM 4.2 mmol/L (3.6-5.2)
[2021-07-23 08:30] VITALS: BP 156/93; TEMP 98.1
[2021-07-23 12:00] VITALS: BP 136/65; TEMP 97.7
[2021-07-23 16:30] VITALS: BP 142/82; TEMP 98.4
[2021-07-23 20:22] VITALS: BP 155/86; TEMP 100.5
[2021-07-24 00:02] VITALS: BP 113/65; TEMP 99.1
[2021-07-24 04:04] VITALS: BP 148/76; TEMP 99.4
[2021-07-24 05:39] LABS: POTASSIUM 3.6 mmol/L (3.6-5.2)
[2021-07-24 05:41] LABS: PLATELET COUNT 214 K/uL (142-355)
[2021-07-24 08:30] VITALS: BP 165/73; TEMP 100.5
[2021-07-24 12:30] VITALS: BP 122/59; TEMP 98.6
[2021-07-24 20:29] VITALS: BP 126/79; TEMP 98.2
[2021-07-25 04:30] VITALS: BP 116/63; TEMP 98.6
[2021-07-25 08:30] VITALS: BP 151/77; TEMP 98.2
[2021-07-25 12:29] VITALS: BP 169/72; TEMP 98.3
[2021-07-25] MEDS ORDERED: FOLI1TAB26 PO (14:55)
[2021-07-25 16:30] VITALS: BP 108/69; TEMP 98.5
== END 2021-07-25 16:15 | DRG 178 ==
LOC: ED 08:30 → MED/SURG 10:30
PROVIDERS: ADMIT Internal Medicine; ATTEND Internal Medicine
DX: J15.0 Pneumonia due to Klebsiella pneumoniae (principal); E87.1 Hypo-osmolality and hyponatremia; Y95 Nosocomial condition; E11.9 Type 2 diabetes mellitus without complications; K21.9 Gastro-esophageal reflux disease without esophagitis; Z86.73 Personal history of transient ischemic attack (TIA), and cerebral infarction without residual deficits; I95.89 Other hypotension; D64.89 Other specified anemias; E03.8 Other specified hypothyroidism
CPT/HCPCS: 36415; 36600; 51702; 80048; 80202; 82607; 82728; 82746; 82805; 83540; 84484; 85014; 85018; 85027; 87070; 87077; 87205; 94640; 94664; 94760; 96360; 96361; 96365; 96366; 99284; J0456; J1650; J1956; J3370; J3490; Q9963

== ENCOUNTER 2021-07-26 06:39 | Outpatient (CLI) | payer OTHER ==
[~2021-07-26 06:39] MED LIST changes: +FERROUS SULF325 M1 PO; +FOLI1TAB26 PO; +MULTIPLE PO; +ONDA4TAB3 PO; +RISP0.5T2 PO; +VITAMIN D32000 UNI1 PO
== END 2021-07-26 19:01 | disposition home or self-care (01) ==
LOC: LAB 06:39
PROVIDERS: ATTEND Internal Medicine
DX: D64.89 Other specified anemias (principal)
CPT/HCPCS: 85014; 85018

== ENCOUNTER 2021-08-14 14:22 | Inpatient (IN) | payer OTHER | END 2021-09-14 14:15 | disposition still patient (30) | LOC: PAVC 14:22 | PROVIDERS: ADMIT Internal Medicine; ATTEND Internal Medicine ==

== ENCOUNTER 2021-09-14 15:33 | Inpatient (IN) | payer OTHER | END 2021-10-14 10:42 | disposition still patient (30) | LOC: PAVC 15:33 | PROVIDERS: ADMIT Internal Medicine; ATTEND Internal Medicine ==

== ENCOUNTER 2021-10-05 14:40 | Outpatient (CLI) | payer OTHER | END 2021-10-05 21:01 | disposition home or self-care (01) | LOC: LAB 14:40 | PROVIDERS: ATTEND Internal Medicine | DX: S91.302A Unspecified open wound, left foot, initial encounter (principal); Y92.9 Unspecified place or not applicable | CPT/HCPCS: 87070; 87077; 87186; 87205 ==

== ENCOUNTER 2021-10-08 13:44 | Outpatient (CLI) | payer OTHER | END 2021-10-08 21:23 | disposition home or self-care (01) | LOC: INF 13:44 → US 13:44 → INF 21:23 | PROVIDERS: ATTEND Internal Medicine | DX: R09.89 Other specified symptoms and signs involving the circulatory and respiratory systems (principal) | CPT/HCPCS: 96365; J2185 ==

== ENCOUNTER 2021-10-09 09:24 | Outpatient (CLI) | payer OTHER ==
[~2021-10-09] VITALS: Ht 167.6 cm; Wt 83.5 kg
[2021-10-09 09:43] VITALS: BP 119/67; TEMP 98.6
[2021-10-09 11:15] VITALS: BP 128/77; TEMP 97.8
[2021-10-09 13:40] VITALS: BP 125/50; TEMP 98.4
== END 2021-10-09 19:41 | disposition home or self-care (01) ==
LOC: INF 09:24
PROVIDERS: ATTEND Internal Medicine
DX: S91.302A Unspecified open wound, left foot, initial encounter (principal); X58.XXXA Exposure to other specified factors, initial encounter; Y93.89 Activity, other specified; Y92.89 Other specified places as the place of occurrence of the external cause
CPT/HCPCS: 96365; 96366; J2185

== ENCOUNTER 2021-10-10 08:05 | Outpatient (CLI) | payer OTHER ==
[~2021-10-10] VITALS: Ht 167.6 cm; Wt 83.5 kg
[2021-10-10 10:16] VITALS: BP 144/58; TEMP 98.4
== END 2021-10-10 19:16 | disposition home or self-care (01) ==
LOC: INF 08:05
PROVIDERS: ATTEND Internal Medicine
DX: S91.302A Unspecified open wound, left foot, initial encounter (principal); X58.XXXA Exposure to other specified factors, initial encounter; Y93.89 Activity, other specified; Y92.89 Other specified places as the place of occurrence of the external cause
CPT/HCPCS: 96365; 96366; J2185

== ENCOUNTER 2021-10-11 08:58 | Outpatient (CLI) | payer OTHER ==
[~2021-10-11] VITALS: Ht 167.6 cm; Wt 83.5 kg
[2021-10-11 09:01] VITALS: BP 132/61; TEMP 98.3
== END 2021-10-11 21:57 | disposition home or self-care (01) ==
LOC: INF 08:58
PROVIDERS: ATTEND Internal Medicine
DX: S91.302A Unspecified open wound, left foot, initial encounter (principal); X58.XXXA Exposure to other specified factors, initial encounter; Y93.89 Activity, other specified; Y92.89 Other specified places as the place of occurrence of the external cause
CPT/HCPCS: 96365; 96366; J2185

== ENCOUNTER 2021-10-12 08:16 | Outpatient (CLI) | payer OTHER ==
[~2021-10-12] VITALS: Ht 167.6 cm; Wt 83.5 kg
[2021-10-12 09:16] VITALS: BP 141/66; TEMP 98.4
== END 2021-10-12 18:51 | disposition home or self-care (01) ==
LOC: INF 08:16
PROVIDERS: ATTEND Internal Medicine
DX: S91.302A Unspecified open wound, left foot, initial encounter (principal); X58.XXXA Exposure to other specified factors, initial encounter; Y93.89 Activity, other specified; Y92.89 Other specified places as the place of occurrence of the external cause
CPT/HCPCS: 96365; 96366; J2185

== ENCOUNTER 2021-10-13 11:50 | Outpatient (CLI) | payer OTHER ==
[~2021-10-13] VITALS: Ht 30.5 cm; Wt 0.5 kg
== END 2021-10-13 18:47 | disposition home or self-care (01) ==
LOC: INF 11:50
PROVIDERS: ATTEND Internal Medicine
DX: S91.302A Unspecified open wound, left foot, initial encounter (principal); X58.XXXA Exposure to other specified factors, initial encounter; Y93.89 Activity, other specified; Y92.89 Other specified places as the place of occurrence of the external cause
CPT/HCPCS: 96365; 96366; J2185

== ENCOUNTER 2021-10-14 02:50 | Inpatient (IN) | payer OTHER | END 2021-11-14 10:03 | disposition still patient (30) | LOC: PAVC 02:50 | PROVIDERS: ADMIT Internal Medicine; ATTEND Internal Medicine ==

== ENCOUNTER 2021-10-14 09:58 | Outpatient (CLI) | payer OTHER | END 2021-10-14 19:04 | disposition home or self-care (01) | LOC: INF 09:58 | PROVIDERS: ATTEND Internal Medicine | DX: S91.302A Unspecified open wound, left foot, initial encounter (principal); X58.XXXA Exposure to other specified factors, initial encounter; Y93.89 Activity, other specified; Y92.89 Other specified places as the place of occurrence of the external cause | CPT/HCPCS: 96365; 96366; J2185 ==

== ENCOUNTER 2021-10-15 09:14 | Outpatient (CLI) | payer OTHER ==
[~2021-10-15] VITALS: Ht 167.6 cm; Wt 83.5 kg
[2021-10-15 09:05] VITALS: BP 142/56; TEMP 97.8
== END 2021-10-15 18:55 | disposition home or self-care (01) ==
LOC: LAB 09:14 → INF 09:14
PROVIDERS: ATTEND Internal Medicine
DX: S91.302A Unspecified open wound, left foot, initial encounter (principal); X58.XXXA Exposure to other specified factors, initial encounter; Y93.89 Activity, other specified; Y92.89 Other specified places as the place of occurrence of the external cause; R73.9 Hyperglycemia, unspecified
CPT/HCPCS: 83036; 96365; 96366; J2185

== ENCOUNTER 2021-10-16 09:01 | Outpatient (CLI) | payer OTHER ==
[~2021-10-16] VITALS: Ht 167.6 cm; Wt 83.5 kg
[2021-10-16 09:03] VITALS: BP 133/54; TEMP 98.8
== END 2021-10-16 18:58 | disposition home or self-care (01) ==
LOC: INF 09:01
PROVIDERS: ATTEND Internal Medicine
DX: S91.302A Unspecified open wound, left foot, initial encounter (principal); X58.XXXA Exposure to other specified factors, initial encounter; Y93.89 Activity, other specified; Y92.89 Other specified places as the place of occurrence of the external cause
CPT/HCPCS: 96365; 96366; J2185

== ENCOUNTER 2021-11-08 08:24 | Outpatient (CLI) | payer OTHER ==
[~2021-11-08] VITALS: Ht 172.7 cm; Wt 89.8 kg
== END 2021-11-08 19:20 | disposition home or self-care (01) ==
LOC: NM 08:24
PROVIDERS: ATTEND Internal Medicine
DX: Z01.810 Encounter for preprocedural cardiovascular examination (principal)
CPT/HCPCS: A9500; J2785

== ENCOUNTER 2021-11-10 08:33 | Emergency (ER) | payer OTHER ==
[~2021-11-10] VITALS: Ht 172.7 cm; Wt 89.8 kg
[2021-11-10 09:30] LABS: PLATELET COUNT 518 K/uL (142-355)
[2021-11-10 09:42] LABS: POTASSIUM 3.8 mmol/L (3.6-5.2)
[2021-11-10 09:45] LABS: PARTIAL THROMBOPLASTIN TIME 25.4 SECONDS (24.5-33.6)
[2021-11-10 11:10] VITALS: BP 132/84; TEMP 98.1
== END 2021-11-10 11:20 | disposition home or self-care (01) ==
LOC: ED 08:33
PROVIDERS: Family Medicine
DX: R41.82 Altered mental status, unspecified (principal); E11.9 Type 2 diabetes mellitus without complications; Z79.84 Long term (current) use of oral hypoglycemic drugs; Z51.81 Encounter for therapeutic drug level monitoring; F03.90 Unspecified dementia, unspecified severity, without behavioral disturbance, psychotic disturbance, mood disturbance, and anxiety; D64.89 Other specified anemias
CPT/HCPCS: 80053; 82550; 84484; 85007; 85027; 85610; 85730; 93005; 99283

== ENCOUNTER 2021-11-12 11:19 | Outpatient (CLI) | payer OTHER | END 2021-11-12 19:20 | disposition home or self-care (01) | LOC: RAD 11:19 | PROVIDERS: ATTEND Internal Medicine | DX: Z01.810 Encounter for preprocedural cardiovascular examination (principal); Z01.811 Encounter for preprocedural respiratory examination; Z01.812 Encounter for preprocedural laboratory examination | CPT/HCPCS: 80048; 85027 ==

== ENCOUNTER 2021-11-13 07:38 | Emergency (ER) | payer OTHER ==
[~2021-11-13] VITALS: Ht 172.7 cm; Wt 80.7 kg
[2021-11-13 08:45] LABS: PLATELET COUNT 527 K/uL (142-355)
[2021-11-13 08:55] LABS: POTASSIUM 3.8 mmol/L (3.6-5.2)
[2021-11-13 08:56] LABS: PARTIAL THROMBOPLASTIN TIME 26.2 SECONDS (24.5-33.6)
[2021-11-13 10:00] VITALS: BP 170/59; TEMP 99
== END 2021-11-13 11:48 | disposition short-term general hospital (02) ==
LOC: ED 07:38
PROVIDERS: Emergency Medicine Emergency Medical Services
DX: E10.52 Type 1 diabetes mellitus with diabetic peripheral angiopathy with gangrene (principal); Z79.84 Long term (current) use of oral hypoglycemic drugs; L03.116 Cellulitis of left lower limb; Z11.52 Encounter for screening for COVID-19
CPT/HCPCS: 36415; 80053; 83605; 84484; 85027; 85610; 85730; 87040; 87635; 93005; 96360; 96365; 99284; J3370; U0003

== ENCOUNTER 2021-11-14 16:21 | Inpatient (IN) | payer OTHER ==
[2021-11-23] MEDS ORDERED: AMOX875T8 PO (22:48)
[2021-11-29] MEDS ORDERED: FLUC150T PO (15:22)
[2021-12-04 13:20] LABS: PLATELET COUNT 345 K/uL (142-355)
[2021-12-15] MEDS ORDERED: [UNRECOGNIZED DRUG - OTHER] PEG (12:48)
[2021-12-15] MEDS ORDERED: NYAMYC100000 UNI TOP (12:54)
[2021-12-17] MEDS ORDERED: PANTOPRAZOLE 40MG TA PO (13:04)
[2021-12-17] MEDS ORDERED: CEFT1INJ27 INJ (13:15)
== END 2021-12-14 09:17 | disposition still patient (30) ==
LOC: PAVC 16:21
PROVIDERS: ADMIT Internal Medicine; ATTEND Internal Medicine
CPT/HCPCS: 80053; 81000; 83605; 85027

== ENCOUNTER 2021-11-23 09:09 | Inpatient (IN) | payer OTHER ==
[~2021-11-23] VITALS: Ht 172.7 cm; Wt 79.2 kg
[2021-11-23] VITALS (9 sets, daily range): BP systolic 113–156; BP diastolic 51–67; TEMP 98.4–98.9; Ht 172.7 cm; Wt 79.2 kg
[2021-11-23 10:15] LABS: PLATELET COUNT 487 K/uL (142-355)
[2021-11-23 10:34] LABS: POTASSIUM 3.4 mmol/L (3.6-5.2)
[2021-11-23 10:35] LABS: PARTIAL THROMBOPLASTIN TIME 23.7 SECONDS (24.5-33.6)
[2021-11-23] MEDS ORDERED: AMOX875T8 PO (22:48)
[2021-11-24 04:00] VITALS: BP 140/50; TEMP 98.4
[2021-11-24 06:54] LABS: PLATELET COUNT 400 K/uL (142-355)
[2021-11-24 07:08] LABS: POTASSIUM 3.5 mmol/L (3.6-5.2)
[2021-11-24 08:00] VITALS: BP 176/54; TEMP 97.6
[2021-11-24 12:00] VITALS: BP 156/60; TEMP 99.3
[2021-11-24 16:00] VITALS: BP 164/50; TEMP 99.6
[2021-11-24 20:00] VITALS: BP 171/51; TEMP 98.4
[2021-11-25] VITALS: BP 182/61; TEMP 98.7
[2021-11-25 04:00] VITALS: BP 161/61; TEMP 98.9
[2021-11-25 05:46] LABS: PLATELET COUNT 397 K/uL (142-355)
[2021-11-25 06:15] LABS: POTASSIUM 3.9 mmol/L (3.6-5.2)
[2021-11-25 08:00] VITALS: BP 189/61; TEMP 98.3
[2021-11-25 12:00] VITALS: BP 154/51; TEMP 99
[2021-11-25 16:00] VITALS: BP 164/48; TEMP 98
[2021-11-25 20:00] VITALS: BP 142/58; TEMP 98.4
[2021-11-26 00:07] VITALS: BP 164/56; TEMP 97.9
[2021-11-26 04:27] VITALS: BP 163/50; TEMP 98.1
[2021-11-26 05:44] LABS: PLATELET COUNT 376 K/uL (142-355)
[2021-11-26 05:52] LABS: POTASSIUM 3.8 mmol/L (3.6-5.2)
[2021-11-26 07:50] VITALS: BP 158/51; TEMP 98.2
[2021-11-26 11:47] VITALS: BP 142/49; TEMP 98.6
[2021-11-26 15:51] VITALS: BP 129/71; BP 164/60; TEMP 98.7; TEMP 99
[2021-11-26 20:00] VITALS: BP 180/48; TEMP 97.9
[2021-11-27] VITALS (7 sets, daily range): BP systolic 125–195; BP diastolic 51–66; TEMP 98.1–98.3
[2021-11-28 04:00] VITALS: BP 177/44; TEMP 98.3
[2021-11-28 05:20] LABS: PLATELET COUNT 281 K/uL (142-355)
[2021-11-28 05:26] LABS: POTASSIUM 3.7 mmol/L (3.6-5.2)
[2021-11-28 08:00] VITALS: BP 169/53; TEMP 98.7
[2021-11-28 12:00] VITALS: BP 118/58; TEMP 98.7
[2021-11-28 16:00] VITALS: BP 104/64; TEMP 98.7
[2021-11-28 19:29] VITALS: BP 185/60; TEMP 99.5
[2021-11-29] VITALS: BP 175/68; TEMP 98.5
[2021-11-29 04:00] VITALS: BP 168/67; TEMP 98.6
[2021-11-29 04:50] LABS: PLATELET COUNT 286 K/uL (142-355)
[2021-11-29 04:59] LABS: POTASSIUM 3.8 mmol/L (3.6-5.2)
[2021-11-29 08:00] VITALS: BP 187/71; TEMP 98
[2021-11-29 12:00] VITALS: BP 183/80; TEMP 98.3
[2021-11-29] MEDS ORDERED: FLUC150T PO (15:22)
== END 2021-11-29 17:32 | DRG 871 ==
LOC: ED 09:09 → MED/SURG 11:15 → UNDODEPER 11-26 12:55 → MED/SURG 11-29 17:32
PROVIDERS: Hospitalist; Internal Medicine; ADMIT Internal Medicine; ATTEND Internal Medicine
DX: A41.89 Other specified sepsis (principal); G92.8 Other toxic encephalopathy; N17.8 Other acute kidney failure; E87.0 Hyperosmolality and hypernatremia; E83.42 Hypomagnesemia; F03.90 Unspecified dementia, unspecified severity, without behavioral disturbance, psychotic disturbance, mood disturbance, and anxiety; R13.19 Other dysphagia; Z89.612 Acquired absence of left leg above knee; D64.89 Other specified anemias; L89.152 Pressure ulcer of sacral region, stage 2; I10 Essential (primary) hypertension; I25.10 Atherosclerotic heart disease of native coronary artery without angina pectoris; E03.8 Other specified hypothyroidism; Z86.73 Personal history of transient ischemic attack (TIA), and cerebral infarction without residual deficits; E11.65 Type 2 diabetes mellitus with hyperglycemia; E83.39 Other disorders of phosphorus metabolism; I73.89 Other specified peripheral vascular diseases
CPT/HCPCS: 36415; 51702; 80048; 80053; 80202; 81000; 82550; 83605; 83735; 83880; 84100; 84484; 85007; 85027; 85610; 85730; 86140; 87040; 87635; 93005; 94760; 96360; 96365; 99284; J1650; J2270; J2543; J3370; J3411; J3475; J3480; J3490; U0003

== ENCOUNTER 2021-12-10 11:30 | Outpatient (CLI) | payer OTHER ==
[~2021-12-10 11:30] MED LIST changes: +AMOX875T8 PO; +FLUC150T PO
[2021-12-15] MEDS ORDERED: [UNRECOGNIZED DRUG - OTHER] PEG (12:48)
[2021-12-15] MEDS ORDERED: NYAMYC100000 UNI TOP (12:54)
[2021-12-17] MEDS ORDERED: PANTOPRAZOLE 40MG TA PO (13:04)
[2021-12-17] MEDS ORDERED: CEFT1INJ27 INJ (13:15)
== END 2021-12-10 19:00 | disposition home or self-care (01) ==
LOC: CT 11:30
PROVIDERS: ATTEND Internal Medicine
DX: R41.82 Altered mental status, unspecified (principal)

== ENCOUNTER 2021-12-13 08:40 | Outpatient (CLI) | payer OTHER ==
[2021-12-13 09:17] LABS: PLATELET COUNT 229 K/uL (142-355)
[2021-12-13 09:25] LABS: POTASSIUM 5.1 mmol/L (3.6-5.2)
== END 2021-12-13 20:34 | disposition home or self-care (01) ==
LOC: LAB 08:40
PROVIDERS: ATTEND Internal Medicine
DX: R50.9 Fever, unspecified (principal); R05.9 Cough, unspecified; R53.81 Other malaise; R79.89 Other specified abnormal findings of blood chemistry
CPT/HCPCS: 36415; 80053; 83880; 85027

== ENCOUNTER 2021-12-14 18:54 | Inpatient (IN) | payer OTHER ==
[~2021-12-14] VITALS: Ht 172.7 cm; Wt 76.7 kg
[2021-12-14] VITALS (8 sets, daily range): BP systolic 110–129; BP diastolic 59–74; TEMP 99.2
[2021-12-14 19:28] LABS: PLATELET COUNT 276 K/uL (142-355)
[2021-12-14 19:43] LABS: POTASSIUM 4.8 mmol/L (3.6-5.2)
--- NOTE | 2021-12-14 23:20 | NUR ---
PATIENT AND FAMILY MEMEBER IN ROOM, ORIENTED TO ROOM AND FACILITY. CLIENT UNABLE TO FORM SENTENCES. WILL PERFORM SIMPLE ACTIONS (SQUEEZE HAND, TURN HEAD) BUT NO GROSS MOTOR MOVEMENT. LEFT ABOVE KNEE AMPUTATION NOTED. 16FR ARCE DRAINING AT BEDSIDE. CLIENT'S IV ACCESS IN LEFT HAND NOT PATENT, UNABLE TO OBTAIN IV ACCESS AT THIS TIME. CONTACTED NURSE FROM ER TO TRY. CLIENT LAYING IN BED. CLIENT WEARING NC AT 3L/MIN O2 SAT 95%.
[2021-12-15] VITALS (8 sets, daily range): BP systolic 96–127; BP diastolic 51–64; TEMP 98.3–102.6; Ht 172.7 cm; Wt 76.7 kg
--- NOTE | 2021-12-15 04:24 | NUR ---
PATIENT HAS TEMPERATURE OF 102.6, REMOVED BLANKETS AND LOWERED ROOM TEMP. CALLED ER DR FOR IV MEDICATION.
--- NOTE | 2021-12-15 05:20 | NUR ---
APPLIED COOL WET WASH CLOTHES TO CLIENT, LOWERED ROOM TEMP TO 73 AIR CONDITIONER CLIENT TEMP ORALLY 100.1. CLIENT SWEATING.
--- NOTE | 2021-12-15 07:36 | NUR ---
ON ROUNDING THIS MORNING PATIENT IS NOTED RESTING WITH EYES CLOSED. FAMILY IS PRESENT AT THE BEDSIDE. SHIFT ASSESSMENT WAS COMPLETED AT THIS TIME. PATIENT IS LETHARGIC AND WILL OPEN HIS EYES BRIEFLY WITH TACTILE STIMULATION AND REPOSITIONING. PATIENT WILL OCCASIONALLY GRUNT WHEN REPOSITIONING HIM. PATIENT HAS NS INFUSING AT 200 ML/HR TO A 22G TO THE LEFT HAND. IV IS PATENT AND INTACT AND THERE WAS NO SIGNS OF INFILTRATION NOTED. PATIENT IS NOTED WITH A DOBHOFF FEEDING TUBE TO THE LEFT NARE. PATIENT IS NOTED WET FROM ICE PACK THAT WERE PLACED FROM PREVIOUS SHIFT DO TO PATIENT HAVING A TEMP 102. GOWN WAS REMOVED AND PATIENT WAS REPOSITIONED ON HIS RIGHT SIDE. PATIENT HAS A TELFA PAD COVERED WITH TEGADERM AND DRESSING IS SATURATED WITH PURULENT DRAINAGE BROWN AND BLOOD. WOUND IS FOUL. DRESSING REMOVED AND A UNSTAGEABLE DECUBITUS WAS NOTED MEASURING APPROX. 10 CM X 12 CMX 0.3 CM. AREA WAS CLEANED WITH NS AND PADDED DRY. WET TO DRY DRESSING APPLIED AND COVERED WITH 4X4 AND SECURED WITH TAPE. ADULT BRIEF IS PLACED. PATIENT HAS A 16F.ARCE CATHETER THAT IS PATENT AND DRAINING APPROPRIATELY WITH CONDENSATION AND URINE NOTED IN CATHETER. APPROX. 100 ML OF DARK MIKAEL URINE WAS NOTED. FAMILY AT THE BEDSIDE WAS CONCERNED THAT THE ARCE CATHETER WAS NOT WORKING CORRECTLY BUT ARCE CATHETER IS PATENT AND INTACT. ON FURTHER ASSESSMENT PATIENT HAS A STAGE 2 DECUBITUS ULCER TO THE RIGHT HEEL DRAINING SCANT AMOUNT OF BLOOD. WOUND MEASURES 2.5 CM X 3.5 CM X 0 CM. AREA CLEANED WITH NS AND PADDED DRY AND COVERED WITH DRY DRESSING AND ANNIKA. RIGHT FOOT WAS ELEVATED ON PILLOWS. PATIENTS BOTH HIPS WERE ELEVATED ON PILLOWS TO KEEP PRESSURE OFF THE SACRUM. WHILE IN THE ROOM PATIENT DID COUGHED UP A LARGE AMOUNT OF GREEN MUCOUS. SUCTION WAS SETUP AT THE BEDSIDE DO TO PATIENT HAVING A DIFFICULT TIME IN COUGHING UP SECRETIONS COMPLETELY. ALL LINENS WERE CHANGED AT THIS TIME. DURING ALL ACTIVITY PATIENT REMAINED LETHARGIC. BED IS LOCKED IN LOW POSITION, SIDERAILS UP X2 AND CALL PAINTER IS WITHIN REACH.
--- NOTE | 2021-12-15 08:15 | NUR ---
FINGER STICK BLOOD SUGAR READING 437.
--- NOTE | 2021-12-15 08:50 | NUR ---
STAT LAB ORDER TO RECHECK GLUCOSE PLACED AT THIS TIME PER PROTOCOL.
--- NOTE | 2021-12-15 09:09 | NUR ---
IV ANTIBITOICS ZOSYN 3.375 WAS SPIKED AT THIS TIME. PATIENT IS STILL RESTING QUIETLY.
--- NOTE | 2021-12-15 09:28 | NUR ---
LAB CALLED A CRITICAL RESULT-- GLUCOSE READING 469.
--- NOTE | 2021-12-15 09:42 | NUR ---
PATIENT GIVEN 10 UNITS OF REGULAR INSULIN.
--- NOTE | 2021-12-15 11:20 | NUR ---
PATIENT REPOSITIONED ON HIS LEFT SIDE WITH PILLOWS ON HIS BOTTOM FOR SUPPORT. FAMILY AT THE BEDSIDE.
[2021-12-15] MEDS ORDERED: [UNRECOGNIZED DRUG - OTHER] PEG ×2 (12:48)
[2021-12-15] MEDS ORDERED: NYAMYC100000 UNI TOP ×2 (12:54)
--- NOTE | 2021-12-15 13:05 | NUR ---
FSBS 375. PATIENT GIVEN 10 UNITS OF REGULAR INSULIN.
--- NOTE | 2021-12-15 13:12 | NUR ---
PATIENT REPOSITIONED ON TO HIS LEFT SIDE. PILLOWS USED TO HELP SUPPORT PATIENT STAY IN THAT POSITION.
--- NOTE | 2021-12-15 13:15 | NUR ---
IN ROOM TALKING WITH GRANDNIK HOOPER.
--- NOTE | 2021-12-15 19:30 | NUR ---
PATIENT RESTING IN BED. PATENT IV SITE 22G AT LEFT HAND, INFUSING NACL. 16FR ARCE DRAINING TO GRAVITY. NASAGASTRIC TUBE NOTED TO LEFT NARES. TURNED CLIENT ONTO LEFT SIDE, PROPPED WITH PILLOWS. SACRAL WOUND DRESSING NOTED IN TACT, BOTTOM DRY. CLEANED CLIENT'S FACE AND PROVIDED ORAL CARE, MOISTURIZED LIPS. CHANGED DRESSING TO RIGHT HEAL, PRIOR DRESSING FALLING OFF, SCANT DRAINAGE NOTED. STAGE II INJURY NOTED TO BOTTOM OF HEAL.
--- NOTE | 2021-12-16 | NUR ---
POSITIONED PATIENT ON BACK, FLOATED BOTH HIPS TO RELIEVE PRESSURE FROM SACRAL AREA. PASSIVE ROM EXERCISES PERFORMED. FLOATED RIGHT HEEL. CLIENT OPENS EYES TO NAME, DOES NOT SPEAK OR SHOW EXPRESSION. PROVIDED ORAL CARE.
[2021-12-16 03:00] VITALS: BP 91/47; TEMP 101.2
--- NOTE | 2021-12-16 03:42 | NUR ---
PATIENT TEMP 101.1 AXILLARY. SEE MAR FOR WHEEL FILLER. LOWERED ROOM TEMP. REMOVED BLANKET.
--- NOTE | 2021-12-16 04:42 | NUR ---
AXILLARY TEMP 99.6.
[2021-12-16 05:35] LABS: POTASSIUM 4.2 mmol/L (3.6-5.2)
[2021-12-16 05:49] LABS: PLATELET COUNT 210 K/uL (142-355)
--- NOTE | 2021-12-16 06:12 | NUR ---
REPOSITIONED CLIENT TO BACK. GRAND DAUGHTER OF CLIENT CALLED TO DISCUSS CLIENT'S ACTIVITY THROUGHOUT THE NIGHT. CLIENT RESTING IN BED, DOES NOT FOLLOW COMMANDS, (OPENING AND CLOSING MOUTH FOR TEMP CHECK, SQUEEZE HAND). WOULD OPEN EYES AND FOLLOW MOVEMENT WITH EYES.
[2021-12-16 07:00] VITALS: BP 104/43; TEMP 98.7
--- NOTE | 2021-12-16 08:30 | NUR ---
PATIENT CLEANED AND DRESSING TO SACRUM REMOVED. YELLOW DRAINAGE AND SCANT AMOUNT OF BLOOD NOTED ON DRESSING. AREA CLEANED WITH NS AND PADDED DRY. TELFAPAD WITH MEDIHONEY APPLIED AND COVERED WITH 4X4 AND ABD PAD PLACED AND SECURED WITH TAPE. WOUND TO THE RIGHT HEEL CLEANED AND COVERED WITH GAUZE AND SECURED WIHT ANNIKA. PATIENT REPOSITIONED ON HIS RIGHT SIDE WITH PILLOWS. PATIENT GIVEN BED BATH. DURING THIS ACTIVITY PATIENT WAS AWAKE BUT DID NOT VOICE OR EXPRESS ANY DISCOMFORT. SIDERAILS UP X2, BED LOCKED IN LOW POSITION AND CALL PAINTER WITHIN REACH.
--- NOTE | 2021-12-16 10:12 | NUR ---
PATIENT REPOSITIONED ON HIS RIGHT SIDE WITH PILLOWS. PATIENT IS RESTING QUIETLY WITH EYES OPEN. PATIENT WILL NOT FOLLOW COMMANDS. PATIENT WILL LOOK IN ONE DIRECTION AND HE WILL NOT FOLLOW YOU IN THE ROOM. IV IS PATENT AND INTACT AND CONTINUES TO INFUSE NS AT 75 ML/HR WITH NO S/S OF INFILTRATION NOTED. FEEDING TO THE LEFT NARE IS IN PLACE. RESIDUAL CHECKED AND BROWN FLUID NOTED ON RETURN ON FURTHER ASSESSMENT TINY AMOUNTS OF BLOOD CLOTS NOTED. FEEDING TUBE FLUSHED WITH 60 ML OF WATER. NO FEEDING GIVEN. NOTIFIED ABOUT FINDINGS.
--- NOTE | 2021-12-16 11:29 | NUR ---
FSBS READING 375. PATIENT GIVEN 10 UNITS OF REGULAR INSULIN.
[2021-12-16 11:40] VITALS: BP 115/54; TEMP 99.5
--- NOTE | 2021-12-16 12:48 | NUR ---
PATIENT REPOSITIONED ON HIS LEFT SIDE WITH PILLOWS FOR SUPPORT.
--- NOTE | 2021-12-16 14:09 | NUR ---
PATIENT REPOSITIONED UP IN THE BED ON TO HIS LEFT SIDE. PATIENT IS RESTING WITH EYES CLOSED.
--- NOTE | 2021-12-16 15:23 | NUR ---
HERIBERTO MUNOZE APPLIED TO THE RIGHT LOWER EXTREMITY.
[2021-12-16 16:00] VITALS: BP 106/40; TEMP 98.4
--- NOTE | 2021-12-16 16:00 | NUR ---
RESIDUAL CHECKED AND APPROX. 20 ML OF BROWN GASTRIC CONTENT NOTED ON RETURN. FEEDING TUBE FLUSHED WITH 60 ML OF WATER AND NO COMPLICATIONS WERE NOTED. PATIENT THEN GIVEN 1 CARTON OF GLUCERNA 1.5 237 ML BOLUS FEED W/O DIFFICULTY FOLLOWED BY 60 ML OF WATER. PATIENT KEPT ABOVE 30 DEGREES TO PREVENT ASPIRATION WHILE FEEDING. PATIENT TOLERATED WELL.
--- NOTE | 2021-12-16 18:20 | NUR ---
PATIENT REPOSITIONED ON HIS RIGHT SIDE WITH PILLOWS ON HIS BACK FOR SUPPORT. FAMILY IS PRESENT AT THE BEDSIDE.
[2021-12-16 20:00] VITALS: BP 109/45; TEMP 100.1
--- NOTE | 2021-12-16 20:00 | NUR ---
TURNED CLIENT ONTO LEFT SIDE. WOULD NOT ARROUSE TO VOICE, DID NOT OPEN EYES. DID NOT REFLEX SQUEEZE HAND. CLIENT'S NIECE IN THE ROOM. PERFORMED ASSESSMENT. IV SITE WNL 22G LEFT HAND WITH 0.9% NACL INFUSING AT 75ML/HR. 16FR ARCE DRAINING TO GRAVITY AT BEDSIDE. NG TUBE NOTED TO LEFT NARES, TAPE SECURE. LEFT ABOVE KNEE AMPUTATION NOTED, HERIBERTO HOSE ON RIGHT LEG, HEAL FLOATED.
--- NOTE | 2021-12-16 22:00 | NUR ---
THIS NURSE AND CHARGE NURSE CHANGED CLIENT'S BRIEF, WATERY BM NOTED. SACRAL DRESSING CLEAN AND INTACT. PERFORMED CATHETER CARE. ROTATED CLIENT TO RIGHT. CHANGED LINENS AND GOWN. PROVIDED MOUTH CARE AND MOISTURIZED LIPS. CLIENT OPENED EYES AFTER TURNING, WOULD NOT FOLLOW COMMANDS (SQUEEZE HAND NOR FOLLOW MOVEMENT WITH EYES). PERFORMED PASSIVE RANGE OF MOTION EXERCISES AND FLOATED HEAL. DRESSING NOTED TO RIGHT HEAL. NG TUBE SECURE AND CLOSED. BED LOCKED IN LOWEST POSITION.
[2021-12-17] VITALS: BP 115/46; TEMP 97.5
--- NOTE | 2021-12-17 00:20 | NUR ---
ROTATED CLIENT TO BACK. CLIENT RESTING, OPENED EYES. DOES NOT REACT TO PAINFUL STIMULI, (RUB UP PALM OF HANDS). DOES NOT FOLLOW COMMANDS NOR REACT TO QUESTIONS.
[2021-12-17 04:00] VITALS: BP 118/51; TEMP 97.5
--- NOTE | 2021-12-17 04:00 | NUR ---
TURNED CLIENT TO RIGHT SIDE. FLOATED RIGHT HEAL. CLIENT OPENED EYES, DID NOT SHOW EXPRESSION OR RESPONSE.
[2021-12-17 05:59] LABS: POTASSIUM 3.2 mmol/L (3.6-5.2)
--- NOTE | 2021-12-17 06:28 | NUR ---
RECEIVED NOTIFICATION OF CRITICAL LAB VALUE OF CHLORIDE 124. NOTIFYING MD. WILL REPORT OFF AT SHIFT CHANGE.
--- NOTE | 2021-12-17 07:55 | NUR ---
PT'S AM ASSESSMENT COMPLETED AT THIS TIME. PCT REPORTS PT'S TEMP 101.2 AX. PT GIVEN PRN IV TYLENOL 1000MG IV PER MD ORDERS. S1/S2 HEARD ON AUSCULTATION. EXPIRATORY WHEEZING NOTED IN BILAT LOWER LOBES. POSITIVE BOWEL SOUNDS X4 QUADRANTS. PT NOTED TO HAVE NG TUBE TO LEFT NARE. PLACEMENT VERIFIED, THEN FLUSHED WITH 50 CC FREE WATER, GLUCERNA 1.2 FOLLOWED BY AM PROTONIX AND FLUSHED WITH ANOTHER 50CC FREE WATER. PT TOLERATED WELL. ORAL CARE PROVIDED, PT MOUTH NOTED TO BE DRY. PT WEARING HUMIDIFIED O2 AT 2LPM NC. PT NOTED TO BE MOUTH BREATHING. PT RESTING QUIETLY AT THIS TIME WITH EYES CLOSED. PT REQUIRES STERNAL RUB TO AWAKEN HIM. PT THEN NOTED TO JUST OPEN HIS EYES AND LOOK AROUND DOES NOT FOLLOW COMMANDS OR VOICE OF PERSON TALKING TO HIM. PT GOES BACK TO SLEEP. PT DOES NOT VERABLIZE AT THIS TIME. PT NOTED TO HAVE LEFT AKA. RLE WITH EHRIBERTO HOSE AND ELEVATED ON PILLOW. NS INFUSING TO 22G LH AT 75ML/HR. PT ON TELEMETRY HR 79 NSR. CONTINUOUS PULSE OX, O2 SATS 99% AT THIS TIME. PT TURNED ON RIGHT SIDE AT THIS TIME. 16FR ARCE DRAINING TO BEDSIDE WITH 100CC OF YELLOW CONCENTRATED URINE WITH SEDIMENT NOTED. PT'S DRESSING TO SACRUM C/D/I AT THIS TIME. CALL LIGHT WITHIN REACH, BED LOW AND LOCKED.
[2021-12-17 08:00] VITALS: BP 117/48; TEMP 101.2
--- NOTE | 2021-12-17 09:48 | NUR ---
Jesus Gan called and said that MD wanted to send patient back on hospice. Nursing asked which hospice that the [facility] had contracts with and greeting card writer said that she knew that [facility] had a contract with them and that they had someone cold roll packer sheet iron today. That greeting card writer would send them the information.
--- NOTE | 2021-12-17 10:25 | NUR ---
Ammunition Specialist spoke with Yvonne at [facility] and they will pick patient up today at [facility]. Evangelist tavarez nurse at the [facility] and made aware.
--- NOTE | 2021-12-17 10:50 | NUR ---
IN PT'S ROOM TO SPEAK WITH GRANDDAUGHTER, ALEJANDRA DONNELLY. INFORMED THAT [facility] WILL BE CONSULTING ONCE HE IS BACK OVER AT THE [place] AND WILL MEET WITH HER AND FAMILY IN HIS ROOM.
--- NOTE | 2021-12-17 11:30 | NUR ---
RETURNING CALL JULIANO CHATTERJEE ON [facility]. UPDATE GIVEN ON PT'S STATUS WITH HOSPICE AND FAMILY'S REQUEST
--- NOTE | 2021-12-17 11:42 | NUR ---
Patients granddaughter was in the room visiting with patient. livestock farmers entered to confirm that she wanted hospice and she [facility] and automatic typewriter inspector let her know that the referral has been sent to them and they will pick him up today. She asked that they have a idea of the time that he will return so that they can be there. livestock farmers notified hospice of the above.
[2021-12-17 12:00] VITALS: BP 123/45; TEMP 99.5
[2021-12-17] MEDS ORDERED: PANTOPRAZOLE 40MG TA PO ×2 (13:04)
[2021-12-17] MEDS ORDERED: CEFT1INJ27 INJ ×2 (13:15)
--- NOTE | 2021-12-17 13:17 | NUR ---
Agent Telegrapher spoke with Evangelist tavarez nurse at the [facility] and let her know that hospice was meeting family at 2pm and that the discharge was being put in. She inquired about DNR feature writer told her that nurse had mentioned that earlier when we notified them that he was coming back and that feature writer would remind her. Discharge instructions faxed to evangelist tavarez nurse.
--- NOTE | 2021-12-17 13:39 | NUR ---
PER PROTONIX 40MG TAKE ONE TAB DAILY. ONE TAB PULLED AND SENT WITH PT PER DR HUTSON DISCHARGE ORDERS. MED LABELED AND BAGGED PER PROTOCOL
--- NOTE | 2021-12-17 13:40 | NUR ---
REPORT GIVEN TO JULIANO CHATTERJEE ON [facility]. AM PROTONIX 40 MG PO DAILY SENT WITH PT FOR AM DOSE. SEN INFORMED HOSPICE WILL BE THERE AT 1400 TO MEET WITH FAMILY ON PT, ARCE LEFT IN PLACE PER MD ORDERS. NG TUBE TO LEFT NARE STILL IN PLACE. INFORMED DNR NOT OBTAINED HERE DUE TO PT'S FAMILY GONE AT THIS TIME. PT IV DC'D TIP INTACT NO REDNESS OR SWELLING NOTED. PT DISCHARGED VIA STRETCHER VIA EMS.
== END 2021-12-17 13:40 | disposition short-term general hospital (02) | DRG 871 ==
LOC: ED 18:54 → MED/SURG 22:15
PROVIDERS: ADMIT Hospitalist; ATTEND Internal Medicine
DX: A41.89 Other specified sepsis (principal); J18.8 Other pneumonia, unspecified organism; N17.8 Other acute kidney failure; F01.51 Vascular dementia, unspecified severity, with behavioral disturbance; I73.89 Other specified peripheral vascular diseases; D53.9 Nutritional anemia, unspecified; I69.818 Other symptoms and signs involving cognitive functions following other cerebrovascular disease; I69.390 Apraxia following cerebral infarction; E03.8 Other specified hypothyroidism; Z89.612 Acquired absence of left leg above knee; E11.65 Type 2 diabetes mellitus with hyperglycemia; M79.7 Fibromyalgia; N40.0 Benign prostatic hyperplasia without lower urinary tract symptoms; K81.1 Chronic cholecystitis; K76.0 Fatty (change of) liver, not elsewhere classified; R16.0 Hepatomegaly, not elsewhere classified; I25.10 Atherosclerotic heart disease of native coronary artery without angina pectoris; E86.0 Dehydration; I11.9 Hypertensive heart disease without heart failure; L89.150 Pressure ulcer of sacral region, unstageable; L89.612 Pressure ulcer of right heel, stage 2
CPT/HCPCS: 36415; 36600; 51702; 80048; 80053; 81002; 82805; 82947; 83690; 84484; 85027; 87040; 87635; 93005; 94664; 94760; 96365; 96368; 96375; 99284; J1956; J0132; J1650; J1815; J2405; J2543; U0003

== ENCOUNTER 2021-12-18 13:40 | Emergency (ER) | payer OTHER ==
[~2021-12-18] VITALS: Ht 172.7 cm; Wt 76.7 kg
[2021-12-18 13:40] VITALS: TEMP 98
[~2021-12-18 13:40] MED LIST changes: +CEFT1INJ27 INJ; +NYAMYC100000 UNI TOP; +PANTOPRAZOLE 40MG TA PO; +[UNRECOGNIZED DRUG - OTHER] PEG
[2021-12-18 14:23] LABS: PARTIAL THROMBOPLASTIN TIME 24.9 SECONDS (24.5-33.6)
[2021-12-18 14:29] LABS: PLATELET COUNT 251 K/uL (142-355)
[2021-12-18 14:54] VITALS: BP 125/50
== END 2021-12-18 16:12 | disposition short-term general hospital (02) ==
LOC: ED 13:40
PROVIDERS: Emergency Medicine
DX: F03.90 Unspecified dementia, unspecified severity, without behavioral disturbance, psychotic disturbance, mood disturbance, and anxiety (principal); J18.8 Other pneumonia, unspecified organism; M35.81 Multisystem inflammatory syndrome; Z11.52 Encounter for screening for COVID-19
CPT/HCPCS: 36415; 80053; 82550; 83880; 84484; 85027; 85610; 85730; 87635; 93005; 99283; U0003